=== PATIENT | female | born 1955 | race Two or more races ===

== ENCOUNTER 2023-12-05 23:05 | Inpatient (IN) | payer MEDICARE, MEDICAID ==
[~2023-12-05] VITALS: Ht 162.6 cm; Wt 69.9 kg
[2023-12-05] MEDS ORDERED: ONDANSETRON 4 MG/2 ML VIAL ONE (23:39)
[2023-12-05] MEDS ORDERED: DILTIAZEM HCL 25 MG IV ONE (23:39)
[2023-12-05 23:42] LABS: BASOPHILS # (AUTO) 0.2 K/UL (0.0-0.2); BASOPHILS % (AUTO) 0.9 % (0.0-2.0); EOSINOPHILS # (AUTO) 0.1 K/uL (0.0-0.7); EOSINOPHILS % (AUTO) 0.5 % (0.0-7.0); HEMATOCRIT 43.1 % (31.2-41.9); HEMOGLOBIN 14.5 g/dL (10.9-14.3); LYMPHOCYTES % (AUTO) 18.6 % (20.5-51.5); MEAN CORPUSCULAR HEMOGLOBIN 28.1 uug (24.7-32.8); MEAN CORPUSCULAR HGB CONC 34 g/dL (32.3-35.6); MEAN CORPUSCULAR VOLUME 83.3 fL (75.5-95.3); MONOCYTES # (AUTO) 0.7 K/uL (0.1-1.30); MONOCYTES % (AUTO) 3.3 % (0.0-11.0); NEUTROPHILS # (AUTO) 16.6 K/uL (1.8-8.9); NEUTROPHILS % (AUTO) 76.7 % (38.5-71.5); PLATELET COUNT (AUTO) 351 K/uL (179-408); RED BLOOD CELL COUNT(AUTO) 5.18 MIL/uL (3.63-4.92); RED CELL DISTRIBUTION WIDTH 13.9 % (12.3-17.7); WHITE BLOOD COUNT (AUTO) 21.7 K/uL (3.8-11.8)
[2023-12-05 23:45] LABS: DIFFERENTIAL COMMENT 1
[2023-12-05] MEDS ORDERED: OLME20TA13 PO (23:45)
[2023-12-05] MEDS ORDERED: ATOR20TA PO (23:45)
[2023-12-05] MEDS ORDERED: METF-440 PO (23:45)
[2023-12-05] MEDS ORDERED: CLON0.1T PO (23:45)
[2023-12-05] MEDS ORDERED: MAGN200T5 PO (23:45)
[2023-12-05] MEDS ORDERED: FELO5TAB45 PO (23:45)
[2023-12-05] MEDS ORDERED: GLIM4TAB37 PO (23:45)
[2023-12-05] MEDS: ONDANSETRON 4 MG/2 ML VIAL IV ONE (23:46)
[2023-12-05 23:52] LABS: CARBON DIOXIDE 22 mmol/L (21-32); CHLORIDE 104 mmol/L (98-107); CREATININE 0.7 mg/dL (0.6-1.3); GLUCOSE 176 mg/dL (74-106); POTASSIUM 3.5 mmol/L (3.5-5.1); SODIUM SERUM 143 mmol/L (136-145); UREA NITROGEN, BLOOD 14 mg/dL (7-18)
[2023-12-06 00:01] LABS: ACETONE, SERUM NEGATIVE (NEGATIVE)
[2023-12-06 00:05] LABS: ALANINE AMINOTRANSFERASE 26 U/L (14-59); ALBUMIN 4.2 g/dL (3.4-5.0); ALKALINE PHOSPHATASE 128 U/L (50-136); ASPARTATE AMINOTRANSFERASE 10 U/L (15-37); BILIRUBIN,TOTAL 0.3 mg/dL (0.2-1.0); LIPASE 57 U/L (16-77); NT-PRO BNP 168 pg/mL (0-125); TOTAL PROTEIN, SERUM 9.1 g/dL (6.4-8.2)
[2023-12-06] MEDS: DILTIAZEM HCL IV 15 MG in IV DEXTROSE 5% 100 ML IV ONE (00:05)
[2023-12-06 00:20] LABS: LACTIC ACID 3.3 mmol/L (0.4-2.0)
[2023-12-06] MEDS ORDERED: PIPERACILLIN/TAZOBACTAM/D5W 50 ML IV ONE (00:54)
[2023-12-06] MEDS: IV NS 1000 ML 1,000 ML IV ONE (01:04)
[2023-12-06] MEDS: PIPERACILLIN SODIUM/TAZOBACTAM 3.375 G in IV DEXTROSE 5% 50 ML IV ONE (01:04)
[2023-12-06 02:44] LABS: *BILIRUBIN,URIN NEGATIVE (NEGATIVE); *CLARITY,URINE CLEAR (CLEAR); *COLOR,URINE YELLOW (YELLOW); *KETONES,URINE NEGATIVE (NEGATIVE); *PROTEIN,URINE NEGATIVE (NEGATIVE); *UROBILINOGEN,URINE 0.2 E.U./dl (NORMAL); LEUKOCYTE ESTERASE ,URINE TRACE (NEGATIVE); NITRITE, URINE NEGATIVE (NEGATIVE); UGLUCOSE NEGATIVE (NEGATIVE)
[2023-12-06 03:03] LABS: *BLOOD, URINE TRACE (NEGATIVE)
[2023-12-06 04:05] LABS: BACTERIA,URINE FEW /HPF (NONE SEEN)
[2023-12-06 04:06] LABS: SQUAMOUS EPITHELIAL CELL,UR FEW /HPF (NONE SEEN)
[2023-12-06] MEDS ORDERED: ACETAMINOPHEN 325 MG TABLET PO PRN (05:15)
[2023-12-06] MEDS ORDERED: ONDANSETRON 4 MG/2 ML VIAL IV PRN (05:15)
[2023-12-06] MEDS ORDERED: REMEDY ESSENTIAL ZINC PASTE 113 GM TP PRN (05:15)
[2023-12-06 07:05] VITALS: BP 124/44; TEMP 98; O2SAT 97
[2023-12-06 07:52] VITALS: BP 127/49; TEMP 98.6; O2SAT 97
[2023-12-06] MEDS: GLIMEPIRIDE 4 MG TABLET PO SCH (08:39)
[2023-12-06] MEDS: ENOXAPARIN SODIUM 40 MG/0.4 ML DISP.SYRIN SQ SCH (08:40)
[2023-12-06] MEDS: LOSARTAN POTASSIUM 50 MG TABLET PO SCH (08:40)
[2023-12-06] MEDS: PANTOPRAZOLE SODIUM 40 MG TABLET.DR PO SCH (08:42)
[2023-12-06] MEDS: CEFTRIAXONE 1 G in IV DEXTROSE 5% 50 ML IV SCH (10:04)
[2023-12-06] MEDS: IV NS 1000 ML 1,000 ML IV PRN (10:05)
[2023-12-06] MEDS: AZITHROMYCIN IV 500 MG in IV DEXTROSE 5% 250 ML IV SCH (11:10)
[2023-12-06 11:33] VITALS: BP 120/49; TEMP 98.2; O2SAT 97
[2023-12-06 11:46] LABS: BASOPHILS % (AUTO) 0.4 % (0.0-2.0); EOSINOPHILS # (AUTO) 0.2 K/uL (0.0-0.7); EOSINOPHILS % (AUTO) 1.3 % (0.0-7.0); HEMATOCRIT 36.8 % (31.2-41.9); HEMOGLOBIN 12.2 g/dL (10.9-14.3); LYMPHOCYTES # (AUTO) 3.9 K/uL (0.8-4.8); LYMPHOCYTES % (AUTO) 33.9 % (20.5-51.5); MEAN CORPUSCULAR HEMOGLOBIN 27.8 uug (24.7-32.8); MEAN CORPUSCULAR HGB CONC 33 g/dL (32.3-35.6); MEAN CORPUSCULAR VOLUME 83.7 fL (75.5-95.3); MONOCYTES # (AUTO) 0.7 K/uL (0.1-1.30); MONOCYTES % (AUTO) 5.7 % (0.0-11.0); NEUTROPHILS # (AUTO) 6.7 K/uL (1.8-8.9); NEUTROPHILS % (AUTO) 58.7 % (38.5-71.5); PLATELET COUNT (AUTO) 289 K/uL (179-408); RED CELL DISTRIBUTION WIDTH 13.9 % (12.3-17.7); WHITE BLOOD COUNT (AUTO) 11.4 K/uL (3.8-11.8)
[2023-12-06 11:49] LABS: DIFFERENTIAL COMMENT 1
[2023-12-06 11:53] LABS: CALCIUM 8.8 mg/dL (8.5-10.1); CREATININE 0.5 mg/dL (0.6-1.3); POTASSIUM 3.6 mmol/L (3.5-5.1)
[2023-12-06 11:58] LABS: THYROID STIMULATING HORMONE 0.505 mIU/mL (0.358-3.740)
[2023-12-06 12:05] LABS: ALBUMIN 3.1 g/dL (3.4-5.0); BILIRUBIN,TOTAL 0.5 mg/dL (0.2-1.0); MAGNESIUM 1.6 mg/dL (1.8-2.4); PHOSPHOROUS 3.4 mg/dL (2.5-4.9); TOTAL PROTEIN, SERUM 7.2 g/dL (6.4-8.2)
[2023-12-06 16:15] VITALS: BP 143/66; TEMP 98.4; O2SAT 99
[2023-12-06] MEDS ORDERED: METOCLOPRAMIDE HCL 10 MG TABLET GT SCH (17:00)
[2023-12-06] MEDS: ATORVASTATIN 20 MG TABLET PO SCH (20:09)
[2023-12-06] MEDS: MAGNESIUM OXIDE 400 MG TABLET PO SCH (20:09)
[2023-12-06 20:19] VITALS: BP 150/63; TEMP 97.5; O2SAT 98
[2023-12-06] MEDS: ENOXAPARIN SODIUM 80 MG/0.8 ML DISP.SYRIN SQ SCH (23:06)
[2023-12-06 23:14] VITALS: BP 150/67; TEMP 97.8; O2SAT 98
[2023-12-07 06:18] VITALS: BP 171/73; TEMP 97.6; O2SAT 99
[2023-12-07] MEDS ORDERED: DEXTROSE 50% 50 ML DISP.SYRIN IV PRN (06:30)
[2023-12-07] MEDS: CLONIDINE HCL 0.1 MG TABLET PO PRN (06:41)
[2023-12-07] MEDS: BLOOD SUGAR DIAGNOSTIC 1 EACH STRIP VI SCH (06:58)
[2023-12-07 07:28] LABS: BASOPHILS # (AUTO) 0.1 K/UL (0.0-0.2); BASOPHILS % (AUTO) 0.7 % (0.0-2.0); EOSINOPHILS # (AUTO) 0.2 K/uL (0.0-0.7); EOSINOPHILS % (AUTO) 2.1 % (0.0-7.0); HEMATOCRIT 33.7 % (31.2-41.9); HEMOGLOBIN 11.4 g/dL (10.9-14.3); LYMPHOCYTES # (AUTO) 4.3 K/uL (0.8-4.8); LYMPHOCYTES % (AUTO) 50.3 % (20.5-51.5); MEAN CORPUSCULAR HEMOGLOBIN 28.4 uug (24.7-32.8); MEAN CORPUSCULAR HGB CONC 34 g/dL (32.3-35.6); MEAN CORPUSCULAR VOLUME 84.1 fL (75.5-95.3); MONOCYTES # (AUTO) 0.6 K/uL (0.1-1.30); MONOCYTES % (AUTO) 6.4 % (0.0-11.0); NEUTROPHILS # (AUTO) 3.5 K/uL (1.8-8.9); NEUTROPHILS % (AUTO) 40.5 % (38.5-71.5); PLATELET COUNT (AUTO) 248 K/uL (179-408); RED CELL DISTRIBUTION WIDTH 13.8 % (12.3-17.7); WHITE BLOOD COUNT (AUTO) 8.6 K/uL (3.8-11.8)
[2023-12-07 07:39] LABS: DIFFERENTIAL COMMENT 1
[2023-12-07 07:41] LABS: ALANINE AMINOTRANSFERASE 11 U/L (14-59); ALBUMIN 2.9 g/dL (3.4-5.0); ALKALINE PHOSPHATASE 77 U/L (50-136); ASPARTATE AMINOTRANSFERASE 13 U/L (15-37); BILIRUBIN,TOTAL 0.4 mg/dL (0.2-1.0); CALCIUM 8.4 mg/dL (8.5-10.1); CARBON DIOXIDE 28 mmol/L (21-32); CHLORIDE 110 mmol/L (98-107); CREATININE 0.4 mg/dL (0.6-1.3); GLUCOSE 126 mg/dL (74-106); MAGNESIUM 1.7 mg/dL (1.8-2.4); PHOSPHOROUS 3.7 mg/dL (2.5-4.9); POTASSIUM 3.7 mmol/L (3.5-5.1); SODIUM SERUM 145 mmol/L (136-145); TOTAL PROTEIN, SERUM 6.4 g/dL (6.4-8.2); UREA NITROGEN, BLOOD 9 mg/dL (7-18)
[2023-12-07] MEDS: POTASSIUM CHLORIDE 20 MEQ TAB.PRT.SR PO ONE (09:48)
[2023-12-07] MEDS: MAGNESIUM OXIDE 400 MG TABLET PO ONE (09:49)
[2023-12-07] MEDS: INSULIN REGULAR, HUMAN 300 UNIT/3 ML VIAL SQ PRN (11:32)
[2023-12-07 12:00] VITALS: BP 147/72; TEMP 97.6; O2SAT 97
[2023-12-07 16:00] VITALS: BP 152/60; TEMP 97.2; O2SAT 97
[2023-12-07] MEDS: BISACODYL 5 MG TABLET.DR PO ONE (18:36)
[2023-12-07 20:00] VITALS: BP 191/71; TEMP 97.8; O2SAT 98
[2023-12-07] MEDS: DOCUSATE SODIUM 100 MG CAPSULE PO SCH (20:09)
[2023-12-08 00:18] VITALS: BP 151/73; TEMP 97.8; O2SAT 97
[2023-12-08 06:00] VITALS: BP 147/62; TEMP 97.6; O2SAT 99
[2023-12-08 08:00] VITALS: BP 168/85; TEMP 98.7; O2SAT 98
[2023-12-08] MEDS: AMLODIPINE 5 MG TABLET PO SCH (10:07)
[2023-12-08] MEDS: MAGNESIUM HYDROXIDE 30 ML LIQUID UDC PO STA (10:28)
[2023-12-08 12:53] VITALS: BP 150/65
[2023-12-08 15:53] VITALS: BP 157/70; TEMP 97.2; O2SAT 97
[2023-12-08] MEDS ORDERED: AMOX-430 PO (16:22)
[2023-12-08] MEDS ORDERED: PANT40TA49 PO (16:22)
[2023-12-08] MEDS ORDERED: DOCU-141 PO (16:22)
== END 2023-12-08 17:15 | disposition home or self-care (01) | DRG 871 ==
LOC: ER 23:17 → TELE3 12-06 06:35 → MEDSURG3 12-08 10:05
PROVIDERS: ADMIT Nurse Practitioner Acute Care; ATTEND Internal Medicine
PROC: 05HF33Z Insertion of Infusion Device into Left Cephalic Vein, Percutaneous Approach (ICD-10-PCS; principal; 2023-12-06)
DX: A41.9 Sepsis, unspecified organism (principal); J18.9 Pneumonia, unspecified organism; J69.0 Pneumonitis due to inhalation of food and vomit; N39.0 Urinary tract infection, site not specified; E44.0 Moderate protein-calorie malnutrition; J98.11 Atelectasis; K56.41 Fecal impaction; I48.0 Paroxysmal atrial fibrillation; K21.00 Gastro-esophageal reflux disease with esophagitis, without bleeding; K44.9 Diaphragmatic hernia without obstruction or gangrene; E66.9 Obesity, unspecified; E11.65 Type 2 diabetes mellitus with hyperglycemia; I10 Essential (primary) hypertension; I07.1 Rheumatic tricuspid insufficiency; I11.9 Hypertensive heart disease without heart failure; Z68.26 Body mass index [BMI] 26.0-26.9, adult; E78.5 Hyperlipidemia, unspecified; Z79.899 Other long term (current) drug therapy; Z90.710 Acquired absence of both cervix and uterus; Z79.84 Long term (current) use of oral hypoglycemic drugs
CPT/HCPCS: 36415; 70450; 71045; 83605; 83690; 83735; 84100; 84443; 84484; 85025; 87040; 93005; 93307; G0378; J0456; J0696; J1650; J1815; J2405; J2543; J3490; J7040; J7050